=== PATIENT | male | born 2000 | race African-American/Black ===

== ENCOUNTER 2023-08-06 17:46 | Emergency (ER) | payer SELFPAY ==
[2023-08-06 18:36] LABS: Bilirubin Neg (Negative); Blood, Urine Negative (Negative); Clarity Clear (Clear); Glucose, Urine (Dipstick) Normal (Negative); Ketone, Urine Negative (Negative); Leukocyte 25 (Negative); Nitrite Negative (Negative); Protein, Urine (Dipstick) 15 mg/dl (Neg-Trace); Urobilinogen Normal mg/dL (Less than 2)
[2023-08-06 19:09] LABS: Bacteria/HPF Rare-Few HPF (None Seen); CAUTI Indications for Culture Dysuria,urgency,freq; RBC/HPF 0-3 HPF (0-3); Squamous Epithelial 0-3 HPF (0-3)
[2023-08-06 19:10] LABS: Urine Culture Reflex Yes Yes
[2023-08-06] MEDS ORDERED: Lidocaine 1% PF 5 ML VIAL ONE (20:18)
[2023-08-06] MEDS ORDERED: cefTRIAXone (ROCEPHIN) 500 MG VIAL ONE (20:19)
[2023-08-07 12:50] LABS: Chlam.trachomatis by PCR,Urine DETECTED (NotDetected); GC N.gonorrhoeae PCR,UrineVOID Not Detected (NotDetected)
== END 2023-08-06 20:26 | disposition home or self-care (01) ==
LOC: CSHERS 17:46
DX: N39.0 Urinary tract infection, site not specified (principal); F17.290 Nicotine dependence, other tobacco product, uncomplicated; Z20.2 Contact with and (suspected) exposure to infections with a predominantly sexual mode of transmission
CPT/HCPCS: 81001; 87086; 87491; 87591; 96372; 99283; J0696